=== PATIENT | female | born 1935 | race African-American/Black ===

== ENCOUNTER 2017-04-26 19:11 | Inpatient (IN) | payer MEDICARE, MEDICAID ==
[~2017-04-26] VITALS: Ht 165.1 cm; Wt 98.4 kg
[~2017-04-26 19:11] MED LIST: ACET500T97 PO; ALBU05 IH; ALBU18HF2 IH; ALLO100T PO; AMLO10TA4 PO; ASPI-1158 PO; ATOR80TA PO; AZEL137S7 NS; CHOL40002 PO; CLOT15CR4 TP; DABI150C PO; DIGO125T82 PO; ETOMIDATE 2MG/ML 10ML VIAL IV ONE; FLUT1DIS5 IH; HYDR-3511 PO; LISI-604 PO; METO50TA5 PO; MONT10TA24 PO; NEBI5TAB3 PO; P20 PO; POTA99TA18 PO; PRED10TA PO; PRED10TA23 PO; REV20 GT; REV20 PO; SENN8.6C5 PO; SILD20TA PO; SUCCINYLCHOLINE CHLORIDE 200MG/10ML VIAL IV ONE; VALS320T2 PO; VIC PO
[2017-04-26] MEDS ORDERED: SODIUM CHLORIDE 0.9% 1000ML BAG (SEPSIS BOLUS) IV ONE (19:30)
[2017-04-26] MEDS ORDERED: MIDAZOLAM HCL 2 MG/2 ML VIAL IV ONE (19:45)
[2017-04-26] MEDS ORDERED: MIDAZOLAM HCL 50 MG in DEXTROSE 5% WATER 40 ML IV ONE ×2 (19:45→22:00)
[2017-04-26] MEDS ORDERED: MIDAZOLAM HCL 50 MG in DEXTROSE 5% WATER 40 ML IV NR (20:00)
[2017-04-26 20:49] LABS: BG BASE EXCESS 6.6 mmol/L (-2.0-2.0); BG CARBOXYHEMOGLOBIN 0.5 % (0.5-1.5); BG DEOXYHEMOGLOBIN 0.6 % (0.0-5.0); BG FRACTION INSPIRED OXYGEN 100; BG HCO3 ACT 32.4 mmol/L (22.0-26.0); BG METHEMOGLOBIN 0.3 % (0.0-1.5); BG OXYGEN SATURATION 99.4 % (92.0-98.5); BG OXYHEMOGLOBIN 98.6 % (94.0-97.0); BG PCO2 54.3 mmHg (35.0-45.0); BG PH 7.394 (7.350-7.450); BG PO2 209.5 mmHg (75.0-100.0); BG SAMPLE SITE LEFT RADIAL; BG TIDAL VOLUME(mL) 550 mL; BG TOTAL HEMOGLOBIN 8.9 g/dL (12.0-18.0); BG VENT MODE VENT - A/C; BG VENT RATE 12 set
[2017-04-26 20:50] LABS: BASOPHILS % 0.3 % (0.0-2.0); HEMATOCRIT. 27.5 % (36.0-48.0); HEMOGLOBIN. 8.3 g/dL (12.0-16.0); LYMPHOCYTES % 18.1 % (20.0-50.0); MEAN CORPUSCULAR HEMOGLOBIN 28.9 pg (28.0-32.0); MEAN CORPUSCULAR VOLUME 96.2 fL (81.0-99.0); MEAN PLATELET VOLUME 8.3 fl (7.4-10.4); MONOCYTES % 5.7 % (2.0-8.0); NEUTROPHILS % 75.9 % (40.0-76.0); PLATELET 184 x1000/uL (130-400); RED BLOOD CELL COUNT 2.86 mill/uL (4.2-5.4); RED CELL DISTRIBUTION WIDTH 16.3 % (11.6-14.6)
[2017-04-26 20:54] LABS: INR 1.4
[2017-04-26 21:02] LABS: CARBON DIOXIDE 36 mEq/L (21-32); CHLORIDE 101 mEq/L (98-107)
[2017-04-26 21:05] LABS: TROPONIN I < 0.02 ng/mL (0.00-0.04)
[2017-04-26] MEDS ORDERED: LEVOFLOXACIN 750MG PREMIX 150 ML IV ONE (22:15)
[2017-04-26 23:11] LABS: CLARITY URINE CLOUDY (CLEAR); COLOR URINE YELLOW (YELLOW); GLUCOSE URINE NEGATIVE (NEGATIVE); KETONES URINE NEGATIVE (NEGATIVE); LEUKOCYTE ESTERASE URINE TRACE (NEGATIVE); NITRITE URINE NEGATIVE (NEGATIVE); OCCULT BLOOD URINE NEGATIVE (NEGATIVE); PROTEIN URINE 2+ (NEGATIVE); SPECIFIC GRAVITY URINE 1.017 (1.005-1.030)
[2017-04-27] VITALS (88 sets, daily range): BP systolic 107–172; BP diastolic 20–104
[2017-04-27] MEDS ORDERED: ACETAMINOPHEN 650MG/20.3ML UDC GT PRN
[2017-04-27] MEDS ORDERED: IPRATROPIUM/ALBUTEROL 0.5-3(2.5)MG/3ML NEB INH PRN
[2017-04-27] MEDS ORDERED: HYDROCODONE/ACETAMINOPHEN 5/325MG TABLET PO PRN
[2017-04-27] MEDS ORDERED: NA PHOS,M-B/NA PHOS,DI-BA ENEMA 118ML PR PRN
[2017-04-27] MEDS ORDERED: ONDANSETRON HCL 4MG/2ML VIAL IV PRN
[2017-04-27] MEDS ORDERED: GUAIFENESIN 200MG/10ML SUGAR FREE UDC PO PRN
[2017-04-27] MEDS ORDERED: ACETAMINOPHEN 325MG TABLET PO PRN
[2017-04-27] MEDS ORDERED: MORPHINE SULFATE 2 MG/ML CPJ (NOT FOR IM USE) IV PRN
[2017-04-27] MEDS ORDERED: DIPHENHYDRAMINE 50MG/ML VIAL IV PRN
[2017-04-27] MEDS ORDERED: LORAZEPAM 2MG/ML CPJ IV PRN
[2017-04-27] MEDS ORDERED: ACETAMINOPHEN 650MG SUPP PR PRN
[2017-04-27] MEDS ORDERED: MAGNESIUM/ALUMINUM HYDROXIDE/SIMETHICONE 30ML UDC PO PRN
[2017-04-27] MEDS ORDERED: MIRT-91 PO (01:22)
[2017-04-27] MEDS ORDERED: LETAIRIS (02:16)
[2017-04-27] MEDS ORDERED: FURO-152 PO (02:16)
[2017-04-27] MEDS ORDERED: NEBI10TA2 PO (02:16)
[2017-04-27] MEDS ORDERED: MEMA1CAP MT (02:16)
[2017-04-27] MEDS: IPRATROPIUM/ALBUTEROL 0.5-3(2.5)MG/3ML NEB INH SCH ×2 (02:18→09:02)
[2017-04-27] MEDS ORDERED: NOREPINEPHRINE 4 MG in DEXT 5% WATER 246 ML IV PRN (03:00)
[2017-04-27] MEDS: METHYLPREDNISOLONE SOD SUCC 125 MG/2 ML VIAL IV SCH ×3 (05:35→21:00)
[2017-04-27] MEDS: SODIUM CHLORIDE 0.9% INJ 3ML FLUSH IVF SCH ×3 (05:35→21:03)
[2017-04-27 05:54] LABS: BASOPHILS % 0.2 % (0.0-2.0); HEMATOCRIT. 26.8 % (36.0-48.0); HEMOGLOBIN. 8.3 g/dL (12.0-16.0); LYMPHOCYTES % 21.9 % (20.0-50.0); MEAN CORPUSCULAR VOLUME 93.7 fL (81.0-99.0); MEAN PLATELET VOLUME 8.2 fl (7.4-10.4); MONOCYTES % 13.3 % (2.0-8.0); NEUTROPHILS % 64.6 % (40.0-76.0); PLATELET 159 x1000/uL (130-400); RED BLOOD CELL COUNT 2.86 mill/uL (4.2-5.4); RED CELL DISTRIBUTION WIDTH 16.2 % (11.6-14.6)
[2017-04-27] MEDS: PROPOFOL 10MG/ML 100ML 100 ML IV PRN ×2 (05:54→14:51)
[2017-04-27] MEDS ORDERED: METHYLPREDNISOLONE SOD SUCC 125 MG/2 ML VIAL IV SCH (06:00)
[2017-04-27 07:00] LABS: CARBON DIOXIDE 36 mEq/L (21-32); CHLORIDE 103 mEq/L (98-107)
[2017-04-27 07:10] LABS: CREATINE KINASE 69 IU/L (26-192); HDL CHOLESTEROL 38 mg/dL (40-59); LDL CHOLESTEROL 52 mg/dL (5-100); TROPONIN I 0.03 ng/mL (0.00-0.04)
[2017-04-27] MEDS ORDERED: ENOXAPARIN 40MG/0.4ML SYR SUBCUT SCH (09:00)
[2017-04-27] MEDS: DEXT 5%/0.45% NACL 1000ML 1,000 ML IV SCH ×2 (09:10→21:02)
[2017-04-27 09:24] LABS: BG BASE EXCESS 8.8 mmol/L (-2.0-2.0); BG CARBOXYHEMOGLOBIN 0.2 % (0.5-1.5); BG DEOXYHEMOGLOBIN 1.8 % (0.0-5.0); BG FRACTION INSPIRED OXYGEN 60; BG HCO3 ACT 33.8 mmol/L (22.0-26.0); BG OXYGEN SATURATION 98.2 % (92.0-98.5); BG PCO2 49.3 mmHg (35.0-45.0); BG PH 7.454 (7.350-7.450); BG PO2 116.2 mmHg (75.0-100.0); BG SAMPLE SITE RIGHT RADIAL; BG TIDAL VOLUME(mL) 500 mL; BG VENT MODE VENT - A/C; BG VENT RATE 12 set
[2017-04-27] MEDS: PANTOPRAZOLE SODIUM 40 MG/VIAL IV SCH (11:29)
[2017-04-27 11:53] LABS: *AMPHETAMINES SCREEN URINE NEGATIVE (NEGATIVE); *BARBITURATES SCREEN URINE NEGATIVE (NEGATIVE); *BENZODIAZEPINES SCREEN URINE PRESUMTIVE POSITIVE (NEGATIVE); *COCAINE SCREEN URINE NEGATIVE (NEGATIVE); CANNABINOID URINE SCREEN NEGATIVE (NEGATIVE); METHADONE URINE SCREEN NEGATIVE (NEGATIVE); OPIATES URINE SCREEN NEGATIVE (NEGATIVE); PHENCYCLIDINE URINE SCREEN NEGATIVE (NEGATIVE)
[2017-04-27] MEDS: IPRATROPIUM/ALBUTEROL 0.5-3(2.5)MG/3ML NEB HHN SCH ×3 (12:27→20:07)
[2017-04-27] MEDS: BUDESONIDE 0.5MG/2ML NEB HHN SCH (12:27)
[2017-04-27 14:28] LABS: TROPONIN I 0.02 ng/mL (0.00-0.04)
[2017-04-27] MEDS ORDERED: METRONIDAZOLE 500 MG PREMIX 100 ML IV SCH (21:15)
[2017-04-28] VITALS (45 sets, daily range): BP systolic 114–146; BP diastolic 60–87
[2017-04-28] MEDS: PROPOFOL 10MG/ML 100ML 100 ML IV PRN (00:33)
[2017-04-28] MEDS: CEFEPIME 2,000 MG in DEXT 5% WATER 100 ML IV SCH ×3 (00:38→22:01)
[2017-04-28] MEDS: LEVOFLOXACIN 750MG PREMIX 150 ML IV SCH ×2 (00:39→22:06)
[2017-04-28] MEDS: BUDESONIDE 0.5MG/2ML NEB HHN SCH ×3 (01:30→19:54)
[2017-04-28] MEDS: IPRATROPIUM/ALBUTEROL 0.5-3(2.5)MG/3ML NEB HHN SCH ×6 (01:30→19:54)
[2017-04-28] MEDS: SODIUM CHLORIDE 0.9% INJ 3ML FLUSH IVF SCH ×3 (05:42→22:01)
[2017-04-28] MEDS: METHYLPREDNISOLONE SOD SUCC 125 MG/2 ML VIAL IV SCH (05:42)
[2017-04-28 07:21] LABS: BG BASE EXCESS 9.9 mmol/L (-2.0-2.0); BG CARBOXYHEMOGLOBIN 0.2 % (0.5-1.5); BG HCO3 ACT 34.5 mmol/L (22.0-26.0); BG METHEMOGLOBIN 0.2 % (0.0-1.5); BG OXYHEMOGLOBIN 94.6 % (94.0-97.0); BG PH 7.475 (7.350-7.450); BG PO2 79.2 mmHg (75.0-100.0); BG SAMPLE SITE RIGHT RADIAL; BG TIDAL VOLUME(mL) 500 mL; BG TOTAL HEMOGLOBIN 8.4 g/dL (12.0-18.0); BG VENT MODE VENT - A/C; BG VENT RATE 12 set
[2017-04-28] MEDS ORDERED: PROPOFOL 10MG/ML 100ML 100 ML IV PRN (07:45)
[2017-04-28] MEDS: PANTOPRAZOLE SODIUM 40 MG/VIAL IV SCH (08:42)
[2017-04-28] MEDS ORDERED: ENOXAPARIN 40MG/0.4ML SYR SUBCUT SCH (11:00)
[2017-04-28] MEDS: ENOXAPARIN 40MG/0.4ML SYR SUBCUT SCH (11:03)
[2017-04-28] MEDS ORDERED: SODIUM CHLORIDE 10% FOR INH 15ML VIAL NEB INH SCH (11:30)
[2017-04-28] MEDS: DEXT 5%/0.45% NACL 1000ML 1,000 ML IV SCH (17:21)
[2017-04-28] MEDS: AMLODIPINE 5MG TABLET PO SCH (20:56)
[2017-04-29] VITALS (38 sets, daily range): BP systolic 97–148; BP diastolic 38–82
[2017-04-29] MEDS: IPRATROPIUM/ALBUTEROL 0.5-3(2.5)MG/3ML NEB HHN SCH ×6 (00:02→20:42)
[2017-04-29] MEDS: SODIUM CHLORIDE 0.9% INJ 3ML FLUSH IVF SCH ×3 (05:24→21:06)
[2017-04-29 07:35] LABS: BG BASE EXCESS 10.6 mmol/L (-2.0-2.0); BG CARBOXYHEMOGLOBIN 0.4 % (0.5-1.5); BG DEOXYHEMOGLOBIN 3.7 % (0.0-5.0); BG FRACTION INSPIRED OXYGEN 60; BG HCO3 ACT 35.1 mmol/L (22.0-26.0); BG METHEMOGLOBIN 0.1 % (0.0-1.5); BG OXYGEN SATURATION 96.3 % (92.0-98.5); BG OXYHEMOGLOBIN 95.8 % (94.0-97.0); BG PCO2 47.1 mmHg (35.0-45.0); BG PRESSURE SUPPORT 10; BG SAMPLE SITE RIGHT BRACHIAL; BG TIDAL VOLUME(mL) 500 mL; BG TOTAL HEMOGLOBIN 8.7 g/dL (12.0-18.0); BG VENT MODE VENT - SIMV; BG VENT RATE 14 set
[2017-04-29] MEDS: BUDESONIDE 0.5MG/2ML NEB HHN SCH ×2 (09:17→20:42)
[2017-04-29] MEDS: PANTOPRAZOLE SODIUM 40 MG/VIAL IV SCH (09:29)
[2017-04-29] MEDS: AMLODIPINE 5MG TABLET PO SCH ×2 (09:30→21:03)
[2017-04-29] MEDS: CEFEPIME 2,000 MG in DEXT 5% WATER 100 ML IV SCH (11:38)
[2017-04-29] MEDS: ENOXAPARIN 40MG/0.4ML SYR SUBCUT SCH (11:39)
[2017-04-29] MEDS ORDERED: FUROSEMIDE 40MG/4ML VIAL IVP NR (11:45)
[2017-04-29] MEDS ORDERED: PNEUMOCOCCAL 23-VAL P-SAC VAC 0.5 ML IM ONE (13:30)
[2017-04-29] MEDS ORDERED: VANCOMYCIN 2,000 MG in DEXT 5% WATER 500 ML IV SCH (14:00)
[2017-04-29] MEDS: SILDENAFIL CITRATE 20MG TABLET PO SCH ×2 (14:54→21:02)
[2017-04-29] MEDS: LACTULOSE 20G/30ML UDC PO PRN (16:52)
[2017-04-29 17:51] LABS: BASOPHILS % 0.3 % (0.0-2.0); EOSINOPHILS % 0.5 % (0.0-5.0); HEMATOCRIT. 27.7 % (36.0-48.0); HEMOGLOBIN. 8.6 g/dL (12.0-16.0); LYMPHOCYTES % 33.4 % (20.0-50.0); MEAN CORPUSCULAR HEMOGLOBIN 28.4 pg (28.0-32.0); MEAN CORPUSCULAR VOLUME 90.9 fL (81.0-99.0); MEAN PLATELET VOLUME 7.6 fl (7.4-10.4); MONOCYTES % 7.5 % (2.0-8.0); NEUTROPHILS % 58.3 % (40.0-76.0); PLATELET 167 x1000/uL (130-400); RED BLOOD CELL COUNT 3.04 mill/uL (4.2-5.4); RED CELL DISTRIBUTION WIDTH 16.2 % (11.6-14.6)
[2017-04-29 18:10] LABS: CARBON DIOXIDE 35 mEq/L (21-32); CHLORIDE 105 mEq/L (98-107)
[2017-04-29] MEDS: LEVOFLOXACIN 750MG PREMIX 150 ML IV SCH (22:07)
[2017-04-30] VITALS (53 sets, daily range): BP systolic 90–125; BP diastolic 31–80
[2017-04-30] MEDS: IPRATROPIUM/ALBUTEROL 0.5-3(2.5)MG/3ML NEB HHN SCH ×7 (00:16→23:41)
[2017-04-30] MEDS: SILDENAFIL CITRATE 20MG TABLET PO SCH ×3 (05:42→21:48)
[2017-04-30] MEDS: SODIUM CHLORIDE 0.9% INJ 3ML FLUSH IVF SCH ×3 (05:42→21:38)
[2017-04-30] MEDS: BUDESONIDE 0.5MG/2ML NEB HHN SCH (08:19)
[2017-04-30] MEDS: PANTOPRAZOLE SODIUM 40 MG/VIAL IV SCH (08:24)
[2017-04-30] MEDS: AMLODIPINE 5MG TABLET PO SCH ×3 (08:25→21:47)
[2017-04-30] MEDS: FUROSEMIDE 40MG/4ML VIAL IVP SCH (08:25)
[2017-04-30] MEDS: ENOXAPARIN 40MG/0.4ML SYR SUBCUT SCH (10:37)
[2017-04-30 11:03] LABS: BASOPHILS % 0.4 % (0.0-2.0); EOSINOPHILS % 2.1 % (0.0-5.0); HEMATOCRIT. 26.3 % (36.0-48.0); HEMOGLOBIN. 8.2 g/dL (12.0-16.0); LYMPHOCYTES % 31.9 % (20.0-50.0); MEAN CORPUSCULAR HEMOGLOBIN 28.5 pg (28.0-32.0); MEAN CORPUSCULAR VOLUME 91.6 fL (81.0-99.0); MONOCYTES % 8.8 % (2.0-8.0); NEUTROPHILS % 56.8 % (40.0-76.0); PLATELET 158 x1000/uL (130-400); RED BLOOD CELL COUNT 2.87 mill/uL (4.2-5.4); RED CELL DISTRIBUTION WIDTH 16.1 % (11.6-14.6)
[2017-04-30 11:47] LABS: CARBON DIOXIDE 36 mEq/L (21-32); CHLORIDE 102 mEq/L (98-107)
[2017-04-30] MEDS: VANCOMYCIN 1250MG in DEXTROSE 5% WATER 250ML IV SCH (13:28)
[2017-04-30 13:56] LABS: BG BASE EXCESS 10.5 mmol/L (-2.0-2.0); BG CARBOXYHEMOGLOBIN 0.3 % (0.5-1.5); BG DEOXYHEMOGLOBIN 4.6 % (0.0-5.0); BG FRACTION INSPIRED OXYGEN 50; BG HCO3 ACT 35.5 mmol/L (22.0-26.0); BG METHEMOGLOBIN 0.2 % (0.0-1.5); BG OXYGEN SATURATION 95.4 % (92.0-98.5); BG OXYHEMOGLOBIN 94.9 % (94.0-97.0); BG PCO2 50.8 mmHg (35.0-45.0); BG PH 7.462 (7.350-7.450); BG PO2 81.6 mmHg (75.0-100.0); BG PRESSURE SUPPORT 10; BG SAMPLE SITE RIGHT BRACHIAL; BG TIDAL VOLUME(mL) 500 mL; BG VENT MODE VENT - SIMV; BG VENT RATE 14 set
[2017-04-30] MEDS: THEOPHYLLINE ANHYDROUS 80 MG/15 ML 120ML PEG SCH ×2 (17:52→21:48)
[2017-04-30] MEDS: LEVOFLOXACIN 750MG PREMIX 150 ML IV SCH (23:10)
[2017-05-01] VITALS (35 sets, daily range): BP systolic 97–132; BP diastolic 48–90
[2017-05-01] MEDS: IPRATROPIUM/ALBUTEROL 0.5-3(2.5)MG/3ML NEB HHN SCH ×6 (04:14→23:39)
[2017-05-01] MEDS: SODIUM CHLORIDE 0.9% INJ 3ML FLUSH IVF SCH ×3 (05:04→21:13)
[2017-05-01] MEDS: SILDENAFIL CITRATE 20MG TABLET PO SCH ×3 (06:00→22:36)
[2017-05-01] MEDS: THEOPHYLLINE ANHYDROUS 80 MG/15 ML 120ML PEG SCH ×3 (06:43→21:27)
[2017-05-01] MEDS: AMLODIPINE 5MG TABLET PO SCH ×2 (09:00→20:01)
[2017-05-01] MEDS: PANTOPRAZOLE SODIUM 40 MG/VIAL IV SCH (09:34)
[2017-05-01] MEDS: FUROSEMIDE 40MG/4ML VIAL IVP SCH (09:34)
[2017-05-01] MEDS: ENOXAPARIN 40MG/0.4ML SYR SUBCUT SCH (12:08)
[2017-05-01] MEDS: VANCOMYCIN 1250MG in DEXTROSE 5% WATER 250ML IV SCH (14:00)
[2017-05-01] MEDS: LEVOFLOXACIN 750MG PREMIX 150 ML IV SCH (23:32)
[2017-05-02] VITALS (49 sets, daily range): BP systolic 89–134; BP diastolic 19–98
[2017-05-02] MEDS: IPRATROPIUM/ALBUTEROL 0.5-3(2.5)MG/3ML NEB HHN SCH ×5 (04:27→20:36)
[2017-05-02] MEDS: SODIUM CHLORIDE 0.9% INJ 3ML FLUSH IVF SCH ×3 (05:43→21:24)
[2017-05-02] MEDS: THEOPHYLLINE ANHYDROUS 80 MG/15 ML 120ML PEG SCH ×3 (06:15→21:37)
[2017-05-02] MEDS: SILDENAFIL CITRATE 20MG TABLET PO SCH ×3 (06:15→21:24)
[2017-05-02 08:32] LABS: BG BASE EXCESS 10.2 mmol/L (-2.0-2.0); BG CARBOXYHEMOGLOBIN 0.4 % (0.5-1.5); BG DEOXYHEMOGLOBIN 5.6 % (0.0-5.0); BG FRACTION INSPIRED OXYGEN 40; BG HCO3 ACT 36.3 mmol/L (22.0-26.0); BG METHEMOGLOBIN 0.3 % (0.0-1.5); BG OXYGEN SATURATION 94.4 % (92.0-98.5); BG OXYHEMOGLOBIN 93.7 % (94.0-97.0); BG PCO2 57.6 mmHg (35.0-45.0); BG PH 7.417 (7.350-7.450); BG PO2 78.9 mmHg (75.0-100.0); BG PRESSURE SUPPORT 10; BG SAMPLE SITE RIGHT RADIAL; BG TIDAL VOLUME(mL) 500 mL; BG TOTAL HEMOGLOBIN 9.7 g/dL (12.0-18.0); BG VENT MODE VENT - SIMV; BG VENT RATE 8 set
[2017-05-02 08:40] LABS: BASOPHILS % 0.6 % (0.0-2.0); EOSINOPHILS % 4.1 % (0.0-5.0); HEMATOCRIT. 28.2 % (36.0-48.0); HEMOGLOBIN. 8.7 g/dL (12.0-16.0); LYMPHOCYTES % 28.3 % (20.0-50.0); MEAN CORPUSCULAR HEMOGLOBIN 28.1 pg (28.0-32.0); MEAN CORPUSCULAR VOLUME 91.4 fL (81.0-99.0); MEAN PLATELET VOLUME 8.1 fl (7.4-10.4); MONOCYTES % 8.2 % (2.0-8.0); NEUTROPHILS % 58.8 % (40.0-76.0); PLATELET 163 x1000/uL (130-400); RED BLOOD CELL COUNT 3.09 mill/uL (4.2-5.4); RED CELL DISTRIBUTION WIDTH 15.9 % (11.6-14.6)
[2017-05-02 08:48] LABS: CHLORIDE 104 mEq/L (98-107)
[2017-05-02] MEDS: ENOXAPARIN 30MG/0.3ML SYR SUBCUT SCH ×2 (08:54→21:23)
[2017-05-02] MEDS: AMLODIPINE 5MG TABLET PO SCH ×2 (08:54→21:00)
[2017-05-02] MEDS: FUROSEMIDE 40MG/4ML VIAL IVP SCH (08:54)
[2017-05-02] MEDS: PANTOPRAZOLE SODIUM 40 MG/VIAL IV SCH (08:54)
[2017-05-02] MEDS: DOCUSATE SODIUM 100MG CAPSULE PO PRN ×2 (08:54→21:23)
[2017-05-02 09:23] LABS: CARBON DIOXIDE 42 mEq/L (21-32)
[2017-05-02 10:04] LABS: BG BASE EXCESS 13.5 mmol/L (-2.0-2.0); BG CARBOXYHEMOGLOBIN 0.2 % (0.5-1.5); BG DEOXYHEMOGLOBIN 4.8 % (0.0-5.0); BG FRACTION INSPIRED OXYGEN 40; BG HCO3 ACT 39.7 mmol/L (22.0-26.0); BG METHEMOGLOBIN 0.2 % (0.0-1.5); BG OXYGEN SATURATION 95.2 % (92.0-98.5); BG OXYHEMOGLOBIN 94.8 % (94.0-97.0); BG PCO2 61.1 mmHg (35.0-45.0); BG PH 7.431 (7.350-7.450); BG PO2 81.3 mmHg (75.0-100.0); BG PRESSURE SUPPORT 8; BG SAMPLE SITE RIGHT RADIAL; BG TOTAL HEMOGLOBIN 9.8 g/dL (12.0-18.0); BG VENT MODE VENT - CPAP
[2017-05-02] MEDS: VANCOMYCIN 1250MG in DEXTROSE 5% WATER 250ML IV SCH (14:46)
[2017-05-02] MEDS: LEVOFLOXACIN 750MG PREMIX 150 ML IV SCH (23:01)
[2017-05-03] VITALS (50 sets, daily range): BP systolic 79–125; BP diastolic 37–75
[2017-05-03] MEDS: IPRATROPIUM/ALBUTEROL 0.5-3(2.5)MG/3ML NEB HHN SCH ×6 (00:24→19:51)
[2017-05-03] MEDS: THEOPHYLLINE ANHYDROUS 80 MG/15 ML 120ML PEG SCH ×3 (05:48→20:46)
[2017-05-03] MEDS: SODIUM CHLORIDE 0.9% INJ 3ML FLUSH IVF SCH ×3 (05:48→20:46)
[2017-05-03] MEDS: SILDENAFIL CITRATE 20MG TABLET PO SCH (05:48)
[2017-05-03 07:38] LABS: BG BASE EXCESS 14.5 mmol/L (-2.0-2.0); BG BILEVEL POS AIRWAY PRESSURE 15/5; BG CARBOXYHEMOGLOBIN 0.4 % (0.5-1.5); BG DEOXYHEMOGLOBIN 7.1 % (0.0-5.0); BG HCO3 ACT 42.8 mmol/L (22.0-26.0); BG METHEMOGLOBIN 0.3 % (0.0-1.5); BG OXYGEN SATURATION 92.8 % (92.0-98.5); BG OXYHEMOGLOBIN 92.2 % (94.0-97.0); BG PCO2 81.6 mmHg (35.0-45.0); BG PH 7.338 (7.350-7.450); BG SAMPLE SITE RIGHT BRACHIAL; BG TOTAL HEMOGLOBIN 9.6 g/dL (12.0-18.0); BG VENT MODE MASK - BIPAP; BG VENT RATE 14 set
[2017-05-03] MEDS: FUROSEMIDE 40MG/4ML VIAL IVP SCH (08:59)
[2017-05-03] MEDS: PANTOPRAZOLE SODIUM 40 MG/VIAL IV SCH (08:59)
[2017-05-03] MEDS: VANCOMYCIN 1250MG in DEXTROSE 5% WATER 250ML IV SCH (08:59)
[2017-05-03] MEDS: ENOXAPARIN 30MG/0.3ML SYR SUBCUT SCH ×2 (09:00→20:45)
[2017-05-03] MEDS: AMLODIPINE 5MG TABLET PO SCH ×2 (09:01→20:50)
[2017-05-03] MEDS: LETAIRIS PO SCH (15:03)
[2017-05-03] MEDS: DOCUSATE SODIUM 100MG CAPSULE PO PRN (20:45)
[2017-05-03] MEDS: LEVOFLOXACIN 750MG PREMIX 150 ML IV SCH (22:13)
[2017-05-04] VITALS (30 sets, daily range): BP systolic 84–117; BP diastolic 24–71
[2017-05-04] MEDS: IPRATROPIUM/ALBUTEROL 0.5-3(2.5)MG/3ML NEB HHN SCH ×6 (00:04→20:34)
[2017-05-04] MEDS: VANCOMYCIN 1250MG in DEXTROSE 5% WATER 250ML IV SCH ×2 (01:35→20:20)
[2017-05-04] MEDS: THEOPHYLLINE ANHYDROUS 80 MG/15 ML 120ML PEG SCH ×3 (06:20→21:35)
[2017-05-04] MEDS: SODIUM CHLORIDE 0.9% INJ 3ML FLUSH IVF SCH ×3 (06:20→20:32)
[2017-05-04] MEDS: PANTOPRAZOLE SODIUM 40 MG/VIAL IV SCH (08:29)
[2017-05-04] MEDS: FUROSEMIDE 40MG/4ML VIAL IVP SCH (08:29)
[2017-05-04] MEDS: AMLODIPINE 5MG TABLET PO SCH (08:29)
[2017-05-04] MEDS: ENOXAPARIN 30MG/0.3ML SYR SUBCUT SCH ×2 (08:29→20:28)
[2017-05-04] MEDS: LETAIRIS PO SCH (08:29)
[2017-05-04 15:46] LABS: BG BASE EXCESS 15.2 mmol/L (-2.0-2.0); BG CARBOXYHEMOGLOBIN 0.2 % (0.5-1.5); BG DEOXYHEMOGLOBIN 7.1 % (0.0-5.0); BG FRACTION INSPIRED OXYGEN 28; BG HCO3 ACT 42.7 mmol/L (22.0-26.0); BG METHEMOGLOBIN 0.3 % (0.0-1.5); BG OXYGEN SATURATION 92.9 % (92.0-98.5); BG OXYHEMOGLOBIN 92.4 % (94.0-97.0); BG PCO2 74.2 mmHg (35.0-45.0); BG PH 7.378 (7.350-7.450); BG PO2 69.3 mmHg (75.0-100.0); BG SAMPLE SITE RIGHT RADIAL; BG TOTAL HEMOGLOBIN 9.3 g/dL (12.0-18.0); BG VENT MODE NASAL CANNULA
[2017-05-04 18:10] LABS: HEMATOCRIT 26.4 % (36.0-48.0); HEMOGLOBIN 8.1 g/dL (12.0-16.0); MEAN CORPUSCULAR HEMOGLOBIN 28.2 pg (28.0-32.0); MEAN CORPUSCULAR VOLUME 91.7 fL (81.0-99.0); PLATELET 183 x1000/uL (130-400); RED BLOOD CELL COUNT 2.88 mill/uL (4.2-5.4); RED CELL DISTRIBUTION WIDTH 15.3 % (11.6-14.6)
[2017-05-04 18:15] LABS: CARBON DIOXIDE 38 mEq/L (21-32); CHLORIDE 96 mEq/L (98-107)
[2017-05-04] MEDS: LEVOFLOXACIN 750MG PREMIX 150 ML IV SCH (23:03)
[2017-05-05] VITALS: BP 107/62
[2017-05-05] MEDS: IPRATROPIUM/ALBUTEROL 0.5-3(2.5)MG/3ML NEB HHN SCH ×4 (00:38→12:19)
[2017-05-05 04:00] VITALS: BP 99/59
[2017-05-05] MEDS: THEOPHYLLINE ANHYDROUS 80 MG/15 ML 120ML PEG SCH ×2 (05:21→13:17)
[2017-05-05] MEDS: SODIUM CHLORIDE 0.9% INJ 3ML FLUSH IVF SCH ×2 (05:22→13:55)
[2017-05-05 08:00] VITALS: BP 124/68
[2017-05-05] MEDS ORDERED: THEOL PEG (08:32)
[2017-05-05] MEDS: PANTOPRAZOLE SODIUM 40 MG/VIAL IV SCH (09:21)
[2017-05-05] MEDS: FUROSEMIDE 40MG/4ML VIAL IVP SCH (09:21)
[2017-05-05] MEDS: LETAIRIS PO SCH (09:22)
[2017-05-05] MEDS: ENOXAPARIN 30MG/0.3ML SYR SUBCUT SCH (09:22)
[2017-05-05 11:05] LABS: T4 FREE 1.38 ng/dL (0.76-1.46)
[2017-05-05] MEDS: VANCOMYCIN 1250MG in DEXTROSE 5% WATER 250ML IV SCH (13:17)
[2017-05-05 13:22] VITALS: BP 98/54
[2017-05-05 13:29] VITALS: BP 98/54
[2017-05-05] MEDS ORDERED: METOPROLOL TARTRATE 25MG TABLET PO SCH (13:30)
[2017-05-05] MEDS: LACTULOSE 20G/30ML UDC PO PRN (13:41)
[2017-05-05] MEDS ORDERED: SILDENAFIL CITRATE 20MG TABLET PO SCH (14:00)
[2017-05-05] MEDS ORDERED: DABIGATRAN ETEXILATE MESYLATE 150 MG PO SCH (17:00)
[2017-05-05 20:49] LABS: CREATINE KINASE 37 IU/L (26-192); CREATINE KINASE MB FRACTION 0.6 ng/mL (0.5-3.6); TROPONIN I < 0.02 ng/mL (0.00-0.04)
== END 2017-05-05 15:42 | DRG 870 ==
LOC: ER 19:11 → MICUNO 22:44 → ENRESERV 23:06 → 5EST 05-04 14:54
PROVIDERS: ADMIT Family Medicine; ATTEND Family Medicine
PROC: 5A1955Z Respiratory Ventilation, Greater than 96 Consecutive Hours (ICD-10-PCS; principal; 2017-04-26)
PROC: 0BH17EZ Insertion of Endotracheal Airway into Trachea, Via Natural or Artificial Opening (ICD-10-PCS; 2017-04-26)
DX: A41.9 Sepsis, unspecified organism (principal); J69.0 Pneumonitis due to inhalation of food and vomit; J96.21 Acute and chronic respiratory failure with hypoxia; G93.41 Metabolic encephalopathy; I50.33 Acute on chronic diastolic (congestive) heart failure; G93.1 Anoxic brain damage, not elsewhere classified; D68.59 Other primary thrombophilia; I27.2 Other secondary pulmonary hypertension; J44.1 Chronic obstructive pulmonary disease with (acute) exacerbation; N39.0 Urinary tract infection, site not specified; I11.0 Hypertensive heart disease with heart failure; D64.9 Anemia, unspecified; E78.5 Hyperlipidemia, unspecified; I48.91 Unspecified atrial fibrillation; Z99.81 Dependence on supplemental oxygen; Z88.0 Allergy status to penicillin
CPT/HCPCS: 31500; 36415; 36600; 51702; 70450; 71010; 80048; 80053; 80061; 80202; 80305; 81001; 82375; 82550; 82553; 82805; 83036; 83605; 83880; 84439; 84443; 84478; 84484; 85025; 85027; 85379; 85610; 87040; 87070; 87086; 92610; 93005; 93306; 93970; 94002; 94003; 94640; 94660; 96374; 97110; 97116; 97163; 97166; 97530; 99291; A6261; C9113; J0330; J0692; J1650; J1940; J1956; J2250; J2704; J2930; J3370; J3490; J7030; J7040; J7050; J7060; J7131; J7620; J7626; A4315

== ENCOUNTER 2017-05-05 15:48 | Inpatient (IN) | payer MEDICARE, MEDICAID ==
[~2017-05-05] VITALS: Ht 165.1 cm; Wt 98.4 kg
[~2017-05-05 15:48] MED LIST changes: -ETOMIDATE 2MG/ML 10ML VIAL IV ONE; +FURO-152 PO; +LETAIRIS; +MEMA1CAP MT; +MIRT-91 PO; +NEBI10TA2 PO; -SUCCINYLCHOLINE CHLORIDE 200MG/10ML VIAL IV ONE; +THEOL PEG
[2017-05-05 17:00] VITALS: BP 103/54
[2017-05-05] MEDS ORDERED: GUAIFENESIN 200MG/10ML SUGAR FREE UDC PO PRN (18:15)
[2017-05-05] MEDS ORDERED: DIPHENHYDRAMINE 25MG CAPSULE PO PRN (18:15)
[2017-05-05] MEDS ORDERED: MAGNESIUM/ALUMINUM HYDROXIDE/SIMETHICONE 30ML UDC PO PRN (18:15)
[2017-05-05] MEDS ORDERED: ACETAMINOPHEN 650MG SUPP PR PRN (18:15)
[2017-05-05] MEDS ORDERED: NA PHOS,M-B/NA PHOS,DI-BA ENEMA 118ML PR PRN (18:15)
[2017-05-05] MEDS ORDERED: LACTULOSE 20G/30ML UDC PO PRN (18:15)
[2017-05-05] MEDS ORDERED: DOCUSATE SODIUM 100MG CAPSULE PO PRN (18:15)
[2017-05-05] MEDS ORDERED: IPRATROPIUM/ALBUTEROL 0.5-3(2.5)MG/3ML NEB HHN PRN (18:15)
[2017-05-05] MEDS ORDERED: ONDANSETRON HCL 4MG TABLET PO PRN (18:15)
[2017-05-05] MEDS ORDERED: ACETAMINOPHEN 650MG/20.3ML UDC PO PRN (18:15)
[2017-05-05 20:00] VITALS: BP 120/67
[2017-05-05] MEDS: METOPROLOL TARTRATE 25MG TABLET PO SCH (21:37)
[2017-05-05] MEDS: SODIUM CHLORIDE 0.9% INJ 3ML FLUSH IVF SCH (21:37)
[2017-05-05] MEDS: SILDENAFIL CITRATE 20MG TABLET PO SCH (22:00)
[2017-05-05] MEDS: IPRATROPIUM/ALBUTEROL 0.5-3(2.5)MG/3ML NEB HHN SCH (22:15)
[2017-05-05] MEDS: THEOPHYLLINE ANHYDROUS 80 MG/15 ML 120ML PO SCH (22:39)
[2017-05-06] MEDS: IPRATROPIUM/ALBUTEROL 0.5-3(2.5)MG/3ML NEB HHN SCH ×6 (01:54→21:20)
[2017-05-06] MEDS: SODIUM CHLORIDE 0.9% INJ 3ML FLUSH IVF SCH ×3 (05:49→21:11)
[2017-05-06] MEDS ORDERED: VANCOMYCIN 1,250 MG in DEXT 5% WATER 250 ML IV SCH (06:00)
[2017-05-06] MEDS: SILDENAFIL CITRATE 20MG TABLET PO SCH ×3 (06:00→22:00)
[2017-05-06] MEDS: THEOPHYLLINE ANHYDROUS 80 MG/15 ML 120ML PO SCH ×3 (06:35→21:11)
[2017-05-06] MEDS: PANTOPRAZOLE 40MG DR TABLET PO SCH (06:36)
[2017-05-06 07:16] LABS: BASOPHILS % 0.8 % (0.0-2.0); EOSINOPHILS % 4.6 % (0.0-5.0); HEMATOCRIT. 26.4 % (36.0-48.0); HEMOGLOBIN. 8.3 g/dL (12.0-16.0); LYMPHOCYTES % 43.3 % (20.0-50.0); MEAN CORPUSCULAR HEMOGLOBIN 28.4 pg (28.0-32.0); MEAN CORPUSCULAR VOLUME 90.5 fL (81.0-99.0); MEAN PLATELET VOLUME 8.2 fl (7.4-10.4); MONOCYTES % 11.8 % (2.0-8.0); NEUTROPHILS % 39.5 % (40.0-76.0); PLATELET 178 x1000/uL (130-400); RED BLOOD CELL COUNT 2.92 mill/uL (4.2-5.4); RED CELL DISTRIBUTION WIDTH 15.2 % (11.6-14.6)
[2017-05-06 07:30] LABS: CHLORIDE 97 mEq/L (98-107); CREATINE KINASE 34 IU/L (26-192); TROPONIN I < 0.02 ng/mL (0.00-0.04)
[2017-05-06 08:00] VITALS: BP 100/54
[2017-05-06 08:38] LABS: CARBON DIOXIDE 40 mEq/L (21-32)
[2017-05-06] MEDS: METOPROLOL TARTRATE 25MG TABLET PO SCH ×2 (09:00→21:00)
[2017-05-06] MEDS: LETAIRIS PO SCH (09:24)
[2017-05-06] MEDS: DOCUSATE SODIUM 100MG CAPSULE PO SCH ×2 (09:24→17:19)
[2017-05-06] MEDS: FUROSEMIDE 40MG TABLET PO SCH (09:25)
[2017-05-06] MEDS: LEVOFLOXACIN 250MG TABLET PO SCH (11:58)
[2017-05-06] MEDS: DABIGATRAN 150 MG XX SCH (17:57)
[2017-05-06 20:00] VITALS: BP 98/46
[2017-05-07] MEDS: IPRATROPIUM/ALBUTEROL 0.5-3(2.5)MG/3ML NEB HHN SCH ×6 (01:39→21:10)
[2017-05-07] MEDS: PANTOPRAZOLE 40MG DR TABLET PO SCH (06:13)
[2017-05-07] MEDS: THEOPHYLLINE ANHYDROUS 80 MG/15 ML 120ML PO SCH ×3 (06:13→20:59)
[2017-05-07] MEDS: SODIUM CHLORIDE 0.9% INJ 3ML FLUSH IVF SCH ×3 (06:13→21:01)
[2017-05-07] MEDS: SILDENAFIL CITRATE 20MG TABLET PO SCH ×3 (06:16→20:54)
[2017-05-07 08:00] VITALS: BP 117/47
[2017-05-07] MEDS: DOCUSATE SODIUM 100MG CAPSULE PO SCH ×2 (09:45→17:45)
[2017-05-07] MEDS: FUROSEMIDE 40MG TABLET PO SCH (09:45)
[2017-05-07] MEDS: DABIGATRAN 150 MG XX SCH ×2 (09:46→17:45)
[2017-05-07] MEDS: METOPROLOL TARTRATE 25MG TABLET PO SCH ×2 (09:46→20:54)
[2017-05-07] MEDS: LETAIRIS PO SCH (09:46)
[2017-05-07] MEDS: LEVOFLOXACIN 250MG TABLET PO SCH (11:00)
[2017-05-07] MEDS ORDERED: LEVOFLOXACIN 250MG TABLET PO SCH (12:30)
[2017-05-07 20:00] VITALS: BP 121/59
[2017-05-08] MEDS: IPRATROPIUM/ALBUTEROL 0.5-3(2.5)MG/3ML NEB HHN SCH ×6 (02:00→23:40)
[2017-05-08] MEDS: PANTOPRAZOLE 40MG DR TABLET PO SCH (06:33)
[2017-05-08] MEDS: SILDENAFIL CITRATE 20MG TABLET PO SCH ×3 (06:33→20:40)
[2017-05-08] MEDS: THEOPHYLLINE ANHYDROUS 80 MG/15 ML 120ML PO SCH ×3 (06:33→20:34)
[2017-05-08] MEDS: SODIUM CHLORIDE 0.9% INJ 3ML FLUSH IVF SCH ×3 (06:39→20:40)
[2017-05-08 08:00] VITALS: BP 101/51
[2017-05-08] MEDS: METOPROLOL TARTRATE 25MG TABLET PO SCH ×2 (08:28→20:39)
[2017-05-08] MEDS: DOCUSATE SODIUM 100MG CAPSULE PO SCH ×2 (08:28→17:23)
[2017-05-08] MEDS: FUROSEMIDE 40MG TABLET PO SCH (08:28)
[2017-05-08] MEDS: LETAIRIS PO SCH (08:29)
[2017-05-08] MEDS: DABIGATRAN 150 MG XX SCH ×2 (08:30→17:23)
[2017-05-08 20:00] VITALS: BP 92/52
[2017-05-08] MEDS: CLOTRIMAZOLE 1% CREAM 30GM TOP SCH (20:34)
[2017-05-09] VITALS: BP 100/64
[2017-05-09] MEDS: IPRATROPIUM/ALBUTEROL 0.5-3(2.5)MG/3ML NEB HHN SCH ×5 (04:13→21:29)
[2017-05-09] MEDS: SILDENAFIL CITRATE 20MG TABLET PO SCH ×2 (06:00→21:17)
[2017-05-09] MEDS: THEOPHYLLINE ANHYDROUS 80 MG/15 ML 120ML PO SCH (06:08)
[2017-05-09] MEDS: PANTOPRAZOLE 40MG DR TABLET PO SCH (06:09)
[2017-05-09] MEDS: SODIUM CHLORIDE 0.9% INJ 3ML FLUSH IVF SCH ×3 (06:14→21:16)
[2017-05-09 08:00] VITALS: BP 100/58
[2017-05-09] MEDS: DOCUSATE SODIUM 100MG CAPSULE PO SCH ×2 (08:13→18:01)
[2017-05-09] MEDS: FUROSEMIDE 40MG TABLET PO SCH (08:13)
[2017-05-09] MEDS: METOPROLOL TARTRATE 25MG TABLET PO SCH ×2 (08:14→21:30)
[2017-05-09] MEDS: DABIGATRAN 150 MG XX SCH ×2 (08:15→18:01)
[2017-05-09] MEDS: LETAIRIS PO SCH (08:15)
[2017-05-09] MEDS: CLOTRIMAZOLE 1% CREAM 30GM TOP SCH ×2 (08:16→21:16)
[2017-05-09 19:00] VITALS: BP 123/61
[2017-05-10] MEDS: IPRATROPIUM/ALBUTEROL 0.5-3(2.5)MG/3ML NEB HHN SCH ×6 (00:48→21:45)
[2017-05-10] MEDS: SODIUM CHLORIDE 0.9% INJ 3ML FLUSH IVF SCH ×3 (07:05→23:10)
[2017-05-10] MEDS: SILDENAFIL CITRATE 20MG TABLET PO SCH ×3 (07:06→22:00)
[2017-05-10] MEDS: PANTOPRAZOLE 40MG DR TABLET PO SCH (07:08)
[2017-05-10 08:00] VITALS: BP 121/68
[2017-05-10] MEDS: DOCUSATE SODIUM 100MG CAPSULE PO SCH ×2 (08:15→17:14)
[2017-05-10] MEDS: FUROSEMIDE 40MG TABLET PO SCH (08:15)
[2017-05-10] MEDS: METOPROLOL TARTRATE 25MG TABLET PO SCH ×2 (08:16→21:00)
[2017-05-10] MEDS: DABIGATRAN 150 MG XX SCH ×2 (08:17→17:15)
[2017-05-10] MEDS: LETAIRIS PO SCH (08:17)
[2017-05-10] MEDS: CLOTRIMAZOLE 1% CREAM 30GM TOP SCH ×2 (08:18→23:09)
[2017-05-10 20:00] VITALS: BP 104/59
[2017-05-11] MEDS: IPRATROPIUM/ALBUTEROL 0.5-3(2.5)MG/3ML NEB HHN SCH ×5 (01:55→20:44)
[2017-05-11] MEDS: SODIUM CHLORIDE 0.9% INJ 3ML FLUSH IVF SCH ×2 (06:20→12:01)
[2017-05-11] MEDS: PANTOPRAZOLE 40MG DR TABLET PO SCH (06:21)
[2017-05-11] MEDS: SILDENAFIL CITRATE 20MG TABLET PO SCH ×3 (06:22→22:00)
[2017-05-11 08:00] VITALS: BP 106/56
[2017-05-11] MEDS: METOPROLOL TARTRATE 25MG TABLET PO SCH ×2 (08:20→21:00)
[2017-05-11] MEDS: DOCUSATE SODIUM 100MG CAPSULE PO SCH ×2 (08:24→17:44)
[2017-05-11] MEDS: LETAIRIS PO SCH (08:25)
[2017-05-11] MEDS: DABIGATRAN 150 MG XX SCH ×2 (08:27→17:45)
[2017-05-11] MEDS: CLOTRIMAZOLE 1% CREAM 30GM TOP SCH ×2 (08:28→22:30)
[2017-05-11 11:53] VITALS: BP 116/61
[2017-05-11] MEDS: FUROSEMIDE 40MG TABLET PO SCH (11:59)
[2017-05-11 20:00] VITALS: BP 107/74
[2017-05-12] MEDS: IPRATROPIUM/ALBUTEROL 0.5-3(2.5)MG/3ML NEB HHN SCH ×6 (01:01→20:05)
[2017-05-12] MEDS: SILDENAFIL CITRATE 20MG TABLET PO SCH ×3 (06:14→21:00)
[2017-05-12] MEDS: FAMOTIDINE 20MG TABLET PO SCH (06:14)
[2017-05-12 08:00] VITALS: BP 113/59
[2017-05-12] MEDS: CLOTRIMAZOLE 1% CREAM 30GM TOP SCH ×2 (08:38→21:01)
[2017-05-12] MEDS: FUROSEMIDE 40MG TABLET PO SCH (08:38)
[2017-05-12] MEDS: DOCUSATE SODIUM 100MG CAPSULE PO SCH ×2 (08:38→18:03)
[2017-05-12] MEDS: DABIGATRAN 150 MG XX SCH ×2 (08:39→18:03)
[2017-05-12] MEDS: LETAIRIS PO SCH (08:40)
[2017-05-12] MEDS: METOPROLOL TARTRATE 25MG TABLET PO SCH ×2 (08:42→21:00)
[2017-05-12 12:35] VITALS: BP 144/63
[2017-05-12 20:00] VITALS: BP 130/70
[2017-05-13] MEDS: IPRATROPIUM/ALBUTEROL 0.5-3(2.5)MG/3ML NEB HHN SCH ×4 (00:24→11:02)
[2017-05-13 06:16] LABS: BASOPHILS % 0.6 % (0.0-2.0); EOSINOPHILS % 4.7 % (0.0-5.0); HEMATOCRIT. 26.8 % (36.0-48.0); HEMOGLOBIN. 8.6 g/dL (12.0-16.0); LYMPHOCYTES % 44.7 % (20.0-50.0); MEAN CORPUSCULAR HEMOGLOBIN 27.9 pg (28.0-32.0); MEAN CORPUSCULAR VOLUME 87.6 fL (81.0-99.0); MEAN PLATELET VOLUME 8.4 fl (7.4-10.4); MONOCYTES % 10.1 % (2.0-8.0); NEUTROPHILS % 39.9 % (40.0-76.0); PLATELET 170 x1000/uL (130-400); RED BLOOD CELL COUNT 3.06 mill/uL (4.2-5.4); RED CELL DISTRIBUTION WIDTH 15.5 % (11.6-14.6)
[2017-05-13] MEDS: FAMOTIDINE 20MG TABLET PO SCH (06:34)
[2017-05-13] MEDS: SILDENAFIL CITRATE 20MG TABLET PO SCH ×2 (06:35→13:59)
[2017-05-13 08:00] VITALS: BP 117/63
[2017-05-13] MEDS: DOCUSATE SODIUM 100MG CAPSULE PO SCH (08:36)
[2017-05-13] MEDS: FUROSEMIDE 40MG TABLET PO SCH (08:36)
[2017-05-13] MEDS: METOPROLOL TARTRATE 25MG TABLET PO SCH (08:37)
[2017-05-13] MEDS: DABIGATRAN 150 MG XX SCH (08:38)
[2017-05-13] MEDS: LETAIRIS PO SCH (08:38)
[2017-05-13] MEDS: CLOTRIMAZOLE 1% CREAM 30GM TOP SCH (08:47)
[2017-05-13 11:27] VITALS: BP 117/63
[2017-05-13 12:54] VITALS: BP 117/63
== END 2017-05-13 14:10 | disposition home health service (06) | DRG 91 ==
PROVIDERS: ADMIT Psychiatry & Neurology Neurology; ATTEND Family Medicine
PROC: 5A09557 Assistance with Respiratory Ventilation, Greater than 96 Consecutive Hours, Continuous Positive Airway Pressure (ICD-10-PCS; principal; 2017-05-08)
DX: G92 Toxic encephalopathy (principal); I50.33 Acute on chronic diastolic (congestive) heart failure; J96.21 Acute and chronic respiratory failure with hypoxia; J69.0 Pneumonitis due to inhalation of food and vomit; J96.22 Acute and chronic respiratory failure with hypercapnia; I42.1 Obstructive hypertrophic cardiomyopathy; J44.1 Chronic obstructive pulmonary disease with (acute) exacerbation; N39.0 Urinary tract infection, site not specified; D64.9 Anemia, unspecified; I11.0 Hypertensive heart disease with heart failure; I27.2 Other secondary pulmonary hypertension; I48.91 Unspecified atrial fibrillation; Z90.710 Acquired absence of both cervix and uterus; Z99.81 Dependence on supplemental oxygen; J32.4 Chronic pansinusitis; R26.9 Unspecified abnormalities of gait and mobility; Z79.899 Other long term (current) drug therapy; Z98.49 Cataract extraction status, unspecified eye; Z79.82 Long term (current) use of aspirin; Z79.01 Long term (current) use of anticoagulants; Z88.0 Allergy status to penicillin; Z88.8 Allergy status to other drugs, medicaments and biological substances
CPT/HCPCS: 36415; 80048; 82550; 82553; 84484; 85025; 94640; 94660; 94664; 97110; 97116; 97162; 97166; 97530; 97532; 97535; J3370; J7050; J7060; J7620

== ENCOUNTER 2021-12-24 10:02 | Inpatient (IN) | payer MEDICARE, MEDICAID ==
[~2021-12-24] VITALS: Ht 170.2 cm; Wt 98.9 kg
[~2021-12-24 10:02] MED LIST changes: -ACET500T97 PO; -ALBU18HF2 IH; +ALBU2.5V13 HHN; -AMLO10TA4 PO; +APIX2.5T PO; -ASPI-1158 PO; +ASPI-1406 PO; -ATOR80TA PO; -AZEL137S7 NS; -CHOL40002 PO; -CLOT15CR4 TP; +DIGO-26 PO; +DIGO125T80 PO; -DIGO125T82 PO; +DONE10TA11 PO; +DONE10TA36 MT; +FORM20VI IH; -FURO-152 PO; -HYDR-3511 PO; +HYDR-4134 MT; -LETAIRIS; -LISI-604 PO; +MACI10TA2 PO; -MEMA1CAP MT; +MEMA28CA5 PO; -METO50TA5 PO; -MIRT-91 PO; +MONT10TA21 PO; -MONT10TA24 PO; -NEBI10TA2 PO; +NITR100C MT; -P20 PO; +PANT40SU MT; -POTA99TA18 PO; -PRED10TA PO; -PRED10TA23 PO; +QUET25TA MT; +QUET25TA PO; -REV20 GT; +REVE175V IH; -SENN8.6C5 PO; -SILD20TA PO; -THEOL PEG; -VALS320T2 PO; -VIC PO
[2021-12-24 10:29] LABS: HEMATOCRIT. 31.8 % (36.0-48.0); HEMOGLOBIN. 9.9 g/dL (12.0-16.0); MEAN CORPUSCULAR HEMOGLOBIN 29.4 pg (28.0-32.0); MEAN CORPUSCULAR VOLUME 94.5 fL (81.0-99.0); MEAN PLATELET VOLUME 9.7 fl (7.4-10.4); PLATELET 145 x1000/uL (130-400); RED BLOOD CELL COUNT 3.37 mill/uL (4.2-5.4); RED CELL DISTRIBUTION WIDTH 17.6 % (11.6-14.6)
[2021-12-24 10:41] LABS: CHLORIDE 97 mEq/L (98-107)
[2021-12-24 10:45] LABS: PLATELET ESTIMATE NORMAL
[2021-12-24 11:03] LABS: INR 1.4; PROTHROMBIN TIME 14.4 sec (9.6-11.0)
[2021-12-24 12:15] LABS: CLARITY URINE CLEAR (CLEAR); COLOR URINE DARK YELLOW (YELLOW); KETONES URINE 1+ (NEGATIVE); LEUKOCYTE ESTERASE URINE TRACE (NEGATIVE); NITRITE URINE NEGATIVE (NEGATIVE); OCCULT BLOOD URINE NEGATIVE (NEGATIVE); PROTEIN URINE TRACE (NEGATIVE); SPECIFIC GRAVITY URINE 1.014 (1.005-1.030)
[2021-12-24 12:32] LABS: BG BASE EXCESS 7.3 mmol/L (-2.0-2.0); BG CARBOXYHEMOGLOBIN 0.1 % (0.5-1.5); BG DEOXYHEMOGLOBIN 5.5 % (0.0-5.0); BG FRACTION INSPIRED OXYGEN 28; BG HCO3 ACT 33.6 mmol/L (22.0-26.0); BG METHEMOGLOBIN 0.3 % (0.0-1.5); BG OXYGEN SATURATION 94.5 % (92.0-98.5); BG OXYHEMOGLOBIN 94.1 % (94.0-97.0); BG PCO2 56.6 mmHg (35.0-45.0); BG PH 7.392 (7.350-7.450); BG PO2 76.1 mmHg (75.0-100.0); BG SAMPLE SITE LEFT BRACHIAL; BG TOTAL HEMOGLOBIN 10.9 g/dL (12.0-18.0); BG VENT MODE NASAL CANNULA
[2021-12-24] MEDS ORDERED: LEVOFLOXACIN 500MG PREMIX 100 ML IV ONE (12:45)
[2021-12-24] MEDS ORDERED: IPRATROPIUM/ALBUTEROL 0.5-3(2.5)MG/3ML NEB HHN PRN (14:30)
[2021-12-24 14:44] LABS: BG BASE EXCESS 9.1 mmol/L (-2.0-2.0); BG CARBOXYHEMOGLOBIN 0.3 % (0.5-1.5); BG DEOXYHEMOGLOBIN 2.2 % (0.0-5.0); BG FRACTION INSPIRED OXYGEN 35; BG HCO3 ACT 33.5 mmol/L (22.0-26.0); BG METHEMOGLOBIN 0.3 % (0.0-1.5); BG OXYGEN SATURATION 97.8 % (92.0-98.5); BG OXYHEMOGLOBIN 97.2 % (94.0-97.0); BG PCO2 45.5 mmHg (35.0-45.0); BG PH 7.485 (7.350-7.450); BG PO2 102.5 mmHg (75.0-100.0); BG SAMPLE SITE LEFT BRACHIAL; BG TOTAL HEMOGLOBIN 10.6 g/dL (12.0-18.0); BG VENT MODE MASK - BIPAP
[2021-12-24] MEDS ORDERED: SODIUM CHLORIDE 0.9% 1,000 ML IV SCH (15:00)
[2021-12-24 15:50] VITALS: BP 134/55
[2021-12-24 16:35] VITALS: BP 135/56
[2021-12-24] MEDS ORDERED: ALBUTEROL (0.083%) 2.5MG/3ML NEB HHN PRN (16:45)
[2021-12-24] MEDS ORDERED: ALLOPURINOL 100 MG TABLET PO SCH (17:00)
[2021-12-24] MEDS ORDERED: APIXABAN 2.5 MG TABLET PO SCH (17:00)
[2021-12-24] MEDS ORDERED: ASPIRIN 81MG EC TABLET PO SCH (17:00)
[2021-12-24 17:23] LABS: BG BASE EXCESS 9.2 mmol/L (-2.0-2.0); BG CARBOXYHEMOGLOBIN 0.3 % (0.5-1.5); BG DEOXYHEMOGLOBIN 2.5 % (0.0-5.0); BG FRACTION INSPIRED OXYGEN 36; BG HCO3 ACT 35.7 mmol/L (22.0-26.0); BG METHEMOGLOBIN 0.3 % (0.0-1.5); BG OXYGEN SATURATION 97.5 % (92.0-98.5); BG OXYHEMOGLOBIN 96.9 % (94.0-97.0); BG PCO2 59.7 mmHg (35.0-45.0); BG PH 7.394 (7.350-7.450); BG PO2 105.2 mmHg (75.0-100.0); BG SAMPLE SITE RIGHT BRACHIAL; BG TOTAL HEMOGLOBIN 10.4 g/dL (12.0-18.0); BG VENT MODE NASAL CANNULA
[2021-12-24] MEDS: HYDRALAZINE HCL 25MG TABLET PO SCH (17:33)
[2021-12-24 18:00] VITALS: BP 143/76
[2021-12-24 20:00] VITALS: BP 121/64
[2021-12-24] MEDS: IPRATROPIUM/ALBUTEROL 0.5-3(2.5)MG/3ML NEB HHN SCH (20:40)
[2021-12-24] MEDS: BUDESONIDE 0.5MG/2ML NEB HHN SCH (20:40)
[2021-12-24 21:00] VITALS: BP 119/56
[2021-12-24] MEDS: QUETIAPINE FUMARATE 25MG TABLET PO SCH (21:07)
[2021-12-24] MEDS: SILDENAFIL CITRATE 20MG TABLET PO SCH (21:07)
[2021-12-24 22:00] VITALS: BP 93/42
[2021-12-24] MEDS ORDERED: SILDENAFIL CITRATE 20MG TABLET PO SCH (22:00)
[2021-12-25] VITALS (16 sets, daily range): BP systolic 85–121; BP diastolic 37–81
[2021-12-25] MEDS: IPRATROPIUM/ALBUTEROL 0.5-3(2.5)MG/3ML NEB HHN SCH ×3 (03:18→14:05)
[2021-12-25] MEDS: SILDENAFIL CITRATE 20MG TABLET PO SCH ×3 (05:51→21:12)
[2021-12-25] MEDS: BUDESONIDE 0.5MG/2ML NEB HHN SCH ×2 (08:33→18:00)
[2021-12-25] MEDS: HYDRALAZINE HCL 25MG TABLET PO SCH ×3 (09:00→17:00)
[2021-12-25] MEDS ORDERED: MONTELUKAST SODIUM 10MG TABLET PO SCH (09:00)
[2021-12-25] MEDS ORDERED: SODIUM CHLORIDE 0.9% 250 ML IV ONE (15:00)
[2021-12-25] MEDS: ACETAMINOPHEN 325MG TABLET PO PRN (15:06)
[2021-12-25] MEDS ORDERED: MAGNESIUM HYDROXIDE 400MG/5ML 30ML UDC PO PRN (15:15)
[2021-12-25] MEDS ORDERED: SIMETHICONE 80MG TABLET CHEW PO PRN (16:15)
[2021-12-25 16:46] LABS: HEMATOCRIT 29.9 % (36.0-48.0); HEMOGLOBIN 9.5 g/dL (12.0-16.0); MEAN CORPUSCULAR HEMOGLOBIN 30.3 pg (28.0-32.0); MEAN CORPUSCULAR VOLUME 95.2 fL (81.0-99.0); PLATELET 110 x1000/uL (130-400); RED BLOOD CELL COUNT 3.14 mill/uL (4.2-5.4); RED CELL DISTRIBUTION WIDTH 16.7 % (11.6-14.6)
[2021-12-25] MEDS ORDERED: DABIGATRAN ETEXILATE MESYLATE 150 MG PO SCH (17:00)
[2021-12-25] MEDS: DONEPEZIL HCL 10MG TABLET PO SCH (17:46)
[2021-12-25] MEDS: FAMOTIDINE 20MG TABLET PO SCH (17:46)
[2021-12-25] MEDS: ALLOPURINOL 100 MG TABLET PO SCH (17:47)
[2021-12-25] MEDS: MONTELUKAST SODIUM 10MG TABLET PO SCH (17:47)
[2021-12-25] MEDS: METHYLPREDNISOLONE SOD SUCC 40 MG/ML VIAL IV SCH (17:48)
[2021-12-25] MEDS ORDERED: DIGOXIN 125MCG TABLET PO SCH (18:00)
[2021-12-25 18:25] LABS: BG BASE EXCESS 12.1 mmol/L (-2.0-2.0); BG CARBOXYHEMOGLOBIN 0.3 % (0.5-1.5); BG DEOXYHEMOGLOBIN 2.6 % (0.0-5.0); BG FRACTION INSPIRED OXYGEN 35; BG HCO3 ACT 37.9 mmol/L (22.0-26.0); BG METHEMOGLOBIN 0.2 % (0.0-1.5); BG OXYGEN SATURATION 97.4 % (92.0-98.5); BG OXYHEMOGLOBIN 96.9 % (94.0-97.0); BG PCO2 56.2 mmHg (35.0-45.0); BG PH 7.447 (7.350-7.450); BG PO2 96.1 mmHg (75.0-100.0); BG SAMPLE SITE RIGHT RADIAL; BG TOTAL HEMOGLOBIN 10.4 g/dL (12.0-18.0); BG VENT MODE MASK - BIPAP
[2021-12-25] MEDS: QUETIAPINE FUMARATE 25MG TABLET PO SCH (21:12)
[2021-12-26] VITALS (11 sets, daily range): BP systolic 88–122; BP diastolic 44–71
[2021-12-26] MEDS: IPRATROPIUM/ALBUTEROL 0.5-3(2.5)MG/3ML NEB HHN SCH ×3 (07:47→20:30)
[2021-12-26] MEDS: METHYLPREDNISOLONE SOD SUCC 40 MG/ML VIAL IV SCH ×2 (07:53→17:45)
[2021-12-26] MEDS: SILDENAFIL CITRATE 20MG TABLET PO SCH ×3 (07:54→22:11)
[2021-12-26] MEDS: HYDRALAZINE HCL 25MG TABLET PO SCH ×3 (08:56→17:46)
[2021-12-26] MEDS: DONEPEZIL HCL 10MG TABLET PO SCH (08:56)
[2021-12-26] MEDS: ALLOPURINOL 100 MG TABLET PO SCH ×2 (08:56→17:46)
[2021-12-26] MEDS ORDERED: REVE175V IH (12:41)
[2021-12-26] MEDS ORDERED: NITR-87 PO (12:42)
[2021-12-26] MEDS: BUDESONIDE 0.5MG/2ML NEB HHN SCH ×2 (14:47→20:30)
[2021-12-26] MEDS: MONTELUKAST SODIUM 10MG TABLET PO SCH (17:46)
[2021-12-26] MEDS: QUETIAPINE FUMARATE 25MG TABLET PO SCH (22:11)
[2021-12-26] MEDS: ACETAMINOPHEN 325MG TABLET PO PRN (22:12)
[2021-12-26] MEDS: FAMOTIDINE 20MG TABLET PO SCH (22:12)
[2021-12-27] MEDS: IPRATROPIUM/ALBUTEROL 0.5-3(2.5)MG/3ML NEB HHN SCH
[2021-12-27 04:00] VITALS: BP 128/63
[2021-12-27] MEDS: METHYLPREDNISOLONE SOD SUCC 40 MG/ML VIAL IV SCH (05:37)
[2021-12-27] MEDS: SILDENAFIL CITRATE 20MG TABLET PO SCH ×3 (05:37→21:59)
[2021-12-27 08:00] VITALS: BP 143/84
[2021-12-27] MEDS: BUDESONIDE 0.5MG/2ML NEB HHN SCH ×2 (09:07→20:11)
[2021-12-27] MEDS: ALLOPURINOL 100 MG TABLET PO SCH ×2 (09:35→17:46)
[2021-12-27] MEDS: DONEPEZIL HCL 10MG TABLET PO SCH (09:35)
[2021-12-27] MEDS: HYDRALAZINE HCL 25MG TABLET PO SCH ×3 (09:36→17:47)
[2021-12-27 11:04] LABS: BASOPHILS % 0.1 % (0.0-2.0); HEMOGLOBIN. 10.1 g/dL (12.0-16.0); LYMPHOCYTES % 21.6 % (20.0-50.0); MEAN CORPUSCULAR HEMOGLOBIN 29.9 pg (28.0-32.0); MEAN CORPUSCULAR VOLUME 94.6 fL (81.0-99.0); MEAN PLATELET VOLUME 8.9 fl (7.4-10.4); MONOCYTES % 2.2 % (2.0-8.0); NEUTROPHILS % 76.1 % (40.0-76.0); PLATELET 124 x1000/uL (130-400); RED BLOOD CELL COUNT 3.38 mill/uL (4.2-5.4); RED CELL DISTRIBUTION WIDTH 17.5 % (11.6-14.6)
[2021-12-27 11:18] LABS: CHLORIDE 94 mEq/L (98-107)
[2021-12-27 12:00] VITALS: BP 121/65
[2021-12-27 16:00] VITALS: BP 112/74
[2021-12-27] MEDS: MONTELUKAST SODIUM 10MG TABLET PO SCH (17:46)
[2021-12-27 20:00] VITALS: BP 107/46
[2021-12-27] MEDS: QUETIAPINE FUMARATE 25MG TABLET PO SCH (21:59)
[2021-12-27] MEDS: FAMOTIDINE 20MG TABLET PO SCH (21:59)
[2021-12-28] VITALS (9 sets, daily range): BP systolic 100–132; BP diastolic 45–80
[2021-12-28] MEDS: SILDENAFIL CITRATE 20MG TABLET PO SCH ×2 (05:56→14:53)
[2021-12-28] MEDS: BUDESONIDE 0.5MG/2ML NEB HHN SCH (08:48)
[2021-12-28] MEDS: ALLOPURINOL 100 MG TABLET PO SCH ×2 (08:59→16:56)
[2021-12-28] MEDS: HYDRALAZINE HCL 25MG TABLET PO SCH ×3 (08:59→16:56)
[2021-12-28] MEDS: DONEPEZIL HCL 10MG TABLET PO SCH (08:59)
[2021-12-28] MEDS ORDERED: METHYLPREDNISOLONE SOD SUCC 40 MG/ML VIAL IV SCH (09:00)
[2021-12-28] MEDS ORDERED: FUROSEMIDE 20MG TABLET PO SCH (11:30)
[2021-12-28] MEDS ORDERED: REV20 PO (12:09)
[2021-12-28] MEDS ORDERED: PULM50 HHN (12:09)
[2021-12-28] MEDS: MONTELUKAST SODIUM 10MG TABLET PO SCH (16:56)
== END 2021-12-28 19:53 | disposition home or self-care (01) | DRG 291 ==
LOC: ER 10:02 → 5EST 12:43 → ENRESERV 13:56 → CANBEDREQ 23:26
PROVIDERS: ADMIT Family Medicine; ATTEND Family Medicine
PROC: 5A09357 Assistance with Respiratory Ventilation, Less than 24 Consecutive Hours, Continuous Positive Airway Pressure (ICD-10-PCS; principal; 2021-12-24)
PROC: 5A09357 Assistance with Respiratory Ventilation, Less than 24 Consecutive Hours, Continuous Positive Airway Pressure (ICD-10-PCS; 2021-12-25)
PROC: 5A09357 Assistance with Respiratory Ventilation, Less than 24 Consecutive Hours, Continuous Positive Airway Pressure (ICD-10-PCS; 2021-12-26)
PROC: 5A09357 Assistance with Respiratory Ventilation, Less than 24 Consecutive Hours, Continuous Positive Airway Pressure (ICD-10-PCS; 2021-12-27)
DX: I11.0 Hypertensive heart disease with heart failure (principal); J96.01 Acute respiratory failure with hypoxia; I50.33 Acute on chronic diastolic (congestive) heart failure; J44.1 Chronic obstructive pulmonary disease with (acute) exacerbation; N17.9 Acute kidney failure, unspecified; E66.2 Morbid (severe) obesity with alveolar hypoventilation; D64.9 Anemia, unspecified; E78.5 Hyperlipidemia, unspecified; R56.9 Unspecified convulsions; Z53.20 Procedure and treatment not carried out because of patient's decision for unspecified reasons; F03.90 Unspecified dementia, unspecified severity, without behavioral disturbance, psychotic disturbance, mood disturbance, and anxiety; E78.00 Pure hypercholesterolemia, unspecified; I27.20 Pulmonary hypertension, unspecified; R00.1 Bradycardia, unspecified; I48.91 Unspecified atrial fibrillation; Z68.34 Body mass index [BMI] 34.0-34.9, adult; Z74.01 Bed confinement status; Z90.5 Acquired absence of kidney; Z99.81 Dependence on supplemental oxygen; Z88.0 Allergy status to penicillin; Z91.013 Allergy to seafood; Z91.018 Allergy to other foods; Z79.899 Other long term (current) drug therapy; Z79.82 Long term (current) use of aspirin
CPT/HCPCS: 36415; 36600; 71045; 80048; 80053; 81003; 82140; 82375; 82805; 83880; 84484; 85025; 85027; 93005; 94640; 94660; 97162; 99291; C1893; J1956; J2920; J7626

== ENCOUNTER 2022-02-17 21:10 | Inpatient (IN) | payer MEDICARE, MEDICAID ==
[~2022-02-17] VITALS: Ht 175.3 cm; Wt 93.4 kg
[2022-02-17] MEDS: ALBUTEROL (0.083%) 2.5MG/3ML NEB HHN SCH ×2 (02:16→03:07)
[~2022-02-17 21:10] MED LIST changes: -ALBU05 IH; -ALBU2.5V13 HHN; -DIGO125T80 PO; -DONE10TA36 MT; +MEMA28CA16 PO; -MEMA28CA5 PO; -NITR100C MT; +PULM50 HHN; -QUET25TA MT; -REVE175V IH
[2022-02-17 22:38] LABS: BG BASE EXCESS 10.5 mmol/L (-2.0-2.0); BG CARBOXYHEMOGLOBIN 0.3 % (0.5-1.5); BG DEOXYHEMOGLOBIN 1.8 % (0.0-5.0); BG FRACTION INSPIRED OXYGEN 34; BG METHEMOGLOBIN 0.2 % (0.0-1.5); BG OXYGEN SATURATION 98.2 % (92.0-98.5); BG OXYHEMOGLOBIN 97.7 % (94.0-97.0); BG PCO2 70.5 mmHg (35.0-45.0); BG PH 7.349 (7.350-7.450); BG PO2 126.9 mmHg (75.0-100.0); BG SAMPLE SITE RIGHT RADIAL; BG TOTAL HEMOGLOBIN 9.5 g/dL (12.0-18.0); BG VENT MODE NASAL CANNULA
[2022-02-17] MEDS ORDERED: IPRATROPIUM BROMIDE (0.02%) 0.5MG/2.5ML NEB HHN SCH (22:56)
[2022-02-17] MEDS ORDERED: METHYLPREDNISOLONE SOD SUCC 125 MG/2 ML VIAL IV SCH (22:56)
[2022-02-17] MEDS ORDERED: CEFTRIAXONE 1 G PREMIX 50 ML IV ONE (23:00)
[2022-02-17] MEDS ORDERED: AZITHROMYCIN 500 MG in DEXT 5% WATER 250 ML IV SCH (23:00)
[2022-02-17] MEDS ORDERED: CEFTRIAXONE 1 G PREMIX 50 ML IV SCH (23:15)
[2022-02-17 23:27] LABS: BASOPHILS % 0.5 % (0.0-2.0); EOSINOPHILS % 13.9 % (0.0-5.0); HEMATOCRIT. 28.9 % (36.0-48.0); HEMOGLOBIN. 8.9 g/dL (12.0-16.0); LYMPHOCYTES % 13.5 % (20.0-50.0); MEAN CORPUSCULAR HEMOGLOBIN 29.8 pg (28.0-32.0); MEAN CORPUSCULAR VOLUME 96.3 fL (81.0-99.0); MEAN PLATELET VOLUME 8.6 fl (7.4-10.4); MONOCYTES % 10.5 % (2.0-8.0); NEUTROPHILS % 61.6 % (40.0-76.0); PLATELET 136 x1000/uL (130-400); RED CELL DISTRIBUTION WIDTH 16.4 % (11.6-14.6)
[2022-02-17 23:31] LABS: CHLORIDE 98 mEq/L (98-107)
[2022-02-18] MEDS ORDERED: ALBUTEROL (0.083%) 2.5MG/3ML NEB HHN SCH (02:30)
[2022-02-18] MEDS ORDERED: MAGNESIUM/ALUMINUM HYDROXIDE/SIMETHICONE 30ML UDC PO PRN (07:30)
[2022-02-18] MEDS ORDERED: CLONIDINE 0.1MG TABLET PO PRN (07:30)
[2022-02-18] MEDS ORDERED: DOCUSATE SODIUM 100MG CAPSULE PO PRN (07:30)
[2022-02-18] MEDS ORDERED: DIPHENHYDRAMINE 50MG/ML VIAL IV PRN (07:30)
[2022-02-18] MEDS ORDERED: GUAIFENESIN 200MG/10ML SUGAR FREE UDC PO PRN (07:30)
[2022-02-18] MEDS ORDERED: HYDROCODONE/ACETAMINOPHEN 5/325MG TABLET PO PRN (07:30)
[2022-02-18] MEDS ORDERED: NA PHOS,M-B/NA PHOS,DI-BA ENEMA 118ML PR PRN (07:30)
[2022-02-18] MEDS ORDERED: IPRATROPIUM/ALBUTEROL 0.5-3(2.5)MG/3ML NEB NEB PRN (07:30)
[2022-02-18] MEDS ORDERED: ONDANSETRON HCL 4MG/2ML INJ IV PRN (07:30)
[2022-02-18] MEDS ORDERED: ACETAMINOPHEN 325MG TABLET PO PRN (07:30)
[2022-02-18] MEDS ORDERED: MORPHINE SULFATE 2 MG/ML CPJ (NOT FOR IM USE) IV PRN (07:30)
[2022-02-18] MEDS ORDERED: NALOXONE HCL 0.4MG/ML VIAL IV PRN (07:45)
[2022-02-18 08:32] VITALS: BP 127/52
[2022-02-18 12:00] VITALS: BP 130/70
[2022-02-18] MEDS: FUROSEMIDE 40MG/4ML VIAL IV SCH (13:07)
[2022-02-18] MEDS: METHYLPREDNISOLONE SOD SUCC 125 MG/2 ML VIAL IV SCH ×3 (13:07→20:06)
[2022-02-18] MEDS: ENOXAPARIN 40MG/0.4ML SYR SUBCUT SCH (13:08)
[2022-02-18] MEDS: ASPIRIN 81MG EC TABLET PO SCH (13:08)
[2022-02-18 16:00] VITALS: BP 120/56
[2022-02-18 16:14] LABS: CREATINE KINASE MB FRACTION 2.3 ng/mL (0.5-3.6); T4 FREE 0.98 ng/dL (0.76-1.46)
[2022-02-18 18:36] LABS: DIGOXIN 1.2 ng/mL (0.9-2.0)
[2022-02-18 20:00] VITALS: BP_SYST 126; BP_SYST 159; BP_DIAS 60; BP_DIAS 66
[2022-02-18] MEDS: BUDESONIDE 0.5MG/2ML NEB HHN SCH (21:32)
[2022-02-19] VITALS: BP 133/63
[2022-02-19] MEDS: METHYLPREDNISOLONE SOD SUCC 125 MG/2 ML VIAL IV SCH ×2 (01:33→09:11)
[2022-02-19 02:11] LABS: CREATINE KINASE MB FRACTION 2.5 ng/mL (0.5-3.6)
[2022-02-19 04:00] VITALS: BP 140/64
[2022-02-19 08:00] VITALS: BP 141/73
[2022-02-19 08:47] LABS: CHLORIDE 101 mEq/L (98-107); CREATINE KINASE 70 IU/L (26-192); CREATINE KINASE MB FRACTION 2.5 ng/mL (0.5-3.6)
[2022-02-19] MEDS: ASPIRIN 81MG EC TABLET PO SCH (09:11)
[2022-02-19] MEDS: FUROSEMIDE 40MG/4ML VIAL IV SCH (09:11)
[2022-02-19] MEDS: ENOXAPARIN 40MG/0.4ML SYR SUBCUT SCH (09:11)
[2022-02-19] MEDS: BUDESONIDE 0.5MG/2ML NEB HHN SCH ×2 (09:41→21:29)
[2022-02-19 12:00] VITALS: BP 140/60
[2022-02-19 12:46] LABS: HEMATOCRIT. 28.9 % (36.0-48.0); HEMOGLOBIN. 8.9 g/dL (12.0-16.0); MEAN CORPUSCULAR HEMOGLOBIN 29.9 pg (28.0-32.0); MEAN CORPUSCULAR VOLUME 96.5 fL (81.0-99.0); MEAN PLATELET VOLUME 8.6 fl (7.4-10.4); PLATELET 150 x1000/uL (130-400); RED BLOOD CELL COUNT 2.99 mill/uL (4.2-5.4); RED CELL DISTRIBUTION WIDTH 16.1 % (11.6-14.6)
[2022-02-19 13:52] LABS: PLATELET ESTIMATE NORMAL
[2022-02-19] MEDS: SILDENAFIL CITRATE 20MG TABLET PO SCH ×2 (14:07→21:04)
[2022-02-19 16:00] VITALS: BP 138/66
[2022-02-19] MEDS: IPRATROPIUM/ALBUTEROL 0.5-3(2.5)MG/3ML NEB HHN SCH ×2 (17:03→21:29)
[2022-02-19 20:00] VITALS: BP 129/60
[2022-02-19] MEDS: METHYLPREDNISOLONE SOD SUCC 40 MG/ML VIAL IV SCH (20:58)
[2022-02-19] MEDS: FLUTICASONE PROPIONATE 50MCG/SPRAY BOTTLE BOTHNSTRLS SCH (21:00)
[2022-02-20] VITALS: BP 133/62
[2022-02-20] MEDS: IPRATROPIUM/ALBUTEROL 0.5-3(2.5)MG/3ML NEB HHN SCH ×4 (01:18→20:29)
[2022-02-20 04:00] VITALS: BP 114/70
[2022-02-20] MEDS: SILDENAFIL CITRATE 20MG TABLET PO SCH ×3 (06:23→21:14)
[2022-02-20 08:10] VITALS: BP 147/73
[2022-02-20] MEDS: FLUTICASONE PROPIONATE 50MCG/SPRAY BOTTLE BOTHNSTRLS SCH ×2 (08:29→21:14)
[2022-02-20] MEDS: ASPIRIN 81MG EC TABLET PO SCH (08:30)
[2022-02-20] MEDS: ENOXAPARIN 40MG/0.4ML SYR SUBCUT SCH (08:30)
[2022-02-20] MEDS: METHYLPREDNISOLONE SOD SUCC 40 MG/ML VIAL IV SCH ×2 (08:30→21:14)
[2022-02-20] MEDS: FUROSEMIDE 40MG/4ML VIAL IV SCH (08:30)
[2022-02-20] MEDS: BUDESONIDE 0.5MG/2ML NEB HHN SCH ×2 (08:51→20:29)
[2022-02-20 12:28] VITALS: BP 139/70
[2022-02-20] MEDS: DILTIAZEM HCL 30MG TABLET PO SCH ×2 (13:59→21:14)
[2022-02-20 16:22] VITALS: BP 111/73
[2022-02-20 20:00] VITALS: BP 123/74
[2022-02-20] MEDS ORDERED: QUETIAPINE FUMARATE 25MG TABLET PO SCH (21:00)
[2022-02-21] VITALS: BP 140/79
[2022-02-21] MEDS: IPRATROPIUM/ALBUTEROL 0.5-3(2.5)MG/3ML NEB HHN SCH ×3 (02:16→13:06)
[2022-02-21 03:49] VITALS: BP 158/89
[2022-02-21] MEDS: DILTIAZEM HCL 30MG TABLET PO SCH (05:27)
[2022-02-21] MEDS: SILDENAFIL CITRATE 20MG TABLET PO SCH (05:27)
[2022-02-21 07:36] VITALS: BP 138/69
[2022-02-21 08:00] VITALS: BP 138/69
[2022-02-21] MEDS: FLUTICASONE PROPIONATE 50MCG/SPRAY BOTTLE BOTHNSTRLS SCH (08:40)
[2022-02-21] MEDS: ASPIRIN 81MG EC TABLET PO SCH (08:41)
[2022-02-21] MEDS: ENOXAPARIN 40MG/0.4ML SYR SUBCUT SCH (08:41)
[2022-02-21] MEDS: FUROSEMIDE 40MG/4ML VIAL IV SCH (08:41)
[2022-02-21] MEDS: METHYLPREDNISOLONE SOD SUCC 40 MG/ML VIAL IV SCH (08:41)
[2022-02-21 12:30] VITALS: BP 139/77
[2022-02-21] MEDS: BUDESONIDE 0.5MG/2ML NEB HHN SCH (13:06)
== END 2022-02-21 16:18 | disposition home or self-care (01) | DRG 291 ==
LOC: ER 21:10 → 6WST 02-18 00:33 → ENRESERV 02-18 04:05
PROVIDERS: ADMIT Internal Medicine; ATTEND Internal Medicine
DX: I11.0 Hypertensive heart disease with heart failure (principal); I50.33 Acute on chronic diastolic (congestive) heart failure; J96.02 Acute respiratory failure with hypercapnia; J44.1 Chronic obstructive pulmonary disease with (acute) exacerbation; G93.40 Encephalopathy, unspecified; N17.9 Acute kidney failure, unspecified; E44.1 Mild protein-calorie malnutrition; E66.2 Morbid (severe) obesity with alveolar hypoventilation; E87.2 Acidosis; I25.10 Atherosclerotic heart disease of native coronary artery without angina pectoris; Z20.822 Contact with and (suspected) exposure to COVID-19; I48.91 Unspecified atrial fibrillation; E78.5 Hyperlipidemia, unspecified; E78.00 Pure hypercholesterolemia, unspecified; D64.9 Anemia, unspecified; I27.20 Pulmonary hypertension, unspecified; D72.10 Eosinophilia, unspecified; I37.1 Nonrheumatic pulmonary valve insufficiency; F03.90 Unspecified dementia, unspecified severity, without behavioral disturbance, psychotic disturbance, mood disturbance, and anxiety; Z68.30 Body mass index [BMI] 30.0-30.9, adult; Z99.81 Dependence on supplemental oxygen; Z90.5 Acquired absence of kidney; Z88.0 Allergy status to penicillin; Z88.8 Allergy status to other drugs, medicaments and biological substances; Z79.01 Long term (current) use of anticoagulants; Z79.899 Other long term (current) drug therapy
CPT/HCPCS: 36415; 36600; 71045; 80053; 80061; 80162; 82375; 82550; 82553; 82805; 83036; 83880; 84439; 84443; 84484; 85025; 85379; 87426; 93005; 93306; 94640; 94660; 99285; C9803; J0456; J0696; J1650; J1940; J2920; J2930; J7060; J7626

== ENCOUNTER 2024-07-12 23:29 | Inpatient (IN) | payer MEDICARE, MEDICAID ==
[~2024-07-12] VITALS: Ht 175.3 cm; Wt 71.7 kg
[~2024-07-12 23:29] MED LIST changes: -APIX2.5T PO; -ASPI-1406 PO; +AZEL137S10 BOTHNSTRLS; +BUDE90AE3 IH; -DIGO-26 PO; -DONE10TA11 PO; -FLUT1DIS5 IH; -FORM20VI IH; +FURO-151 PO; -HYDR-4134 MT; +IPRA3AMP9 NEB; -MEMA28CA16 PO; +MONT-46 PO; -MONT10TA21 PO; -NEBI5TAB3 PO; -PANT40SU MT; -PULM50 HHN; -QUET25TA PO; +SILD20TA13 PO; +TIZA4CAP PO
[2024-07-13] VITALS (7 sets, daily range): BP systolic 154–171; BP diastolic 73–98; PULSE 64–84; RESP 16–18; TEMP 36.6696–37.94748; O2SAT 98–100
[2024-07-13] MEDS: ALBUTEROL (0.083%) 2.5MG/3ML NEB HHN STA (00:16)
[2024-07-13] MEDS: IPRATROPIUM BROMIDE (0.02%) 0.5MG/2.5ML NEB HHN STA (00:16)
[2024-07-13 00:45] LABS: BASOPHILS % 0.6 % (0.0-2.0); HEMATOCRIT. 31.9 % (36.0-48.0); HEMOGLOBIN. 10.3 g/dL (12.0-16.0); LYMPHOCYTES % 30.8 % (20.0-50.0); MEAN CORPUSCULAR HEMOGLOBIN 29.8 pg (28.0-32.0); MEAN CORPUSCULAR HGB CONC 32.3 g/dL (31.0-37.0); MEAN CORPUSCULAR VOLUME 92.3 fL (81.0-99.0); MEAN PLATELET VOLUME 7.9 fl (7.4-10.4); NEUTROPHILS % 60.6 % (40.0-76.0); PLATELET 155 x1000/uL (130-400); RED BLOOD CELL COUNT 3.45 mill/uL (4.2-5.4); RED CELL DISTRIBUTION WIDTH 15.2 % (11.6-14.6); WHITE BLOOD COUNT 4.6 x1000/uL (4.5-11.0)
[2024-07-13 00:50] LABS: CHLORIDE 102 mEq/L (98-107); POTASSIUM 3.6 mEq/L (3.5-5.1); SODIUM 142 mEq/L (136-145)
[2024-07-13 00:51] LABS: CALCIUM 9.8 mg/dL (8.7-10.4); CARBON DIOXIDE 36 mEq/L (21-32)
[2024-07-13 00:56] LABS: CREATININE 0.8 mg/dL (0.6-1.0); GLUCOSE 148 mg/dL (70-105); UREA NITROGEN BLOOD 17 mg/dL (9-23)
[2024-07-13 01:26] LABS: TROPONIN I HIGH SENSITIVITY 48 ng/L (3.0-34)
[2024-07-13] MEDS ORDERED: IPRATROPIUM/ALBUTEROL 0.5-3(2.5)MG/3ML NEB NEB PRN (05:45)
[2024-07-13] MEDS ORDERED: ONDANSETRON HCL 4MG/2ML INJ IV PRN (05:45)
[2024-07-13 11:15] LABS: CREATINE KINASE 44 IU/L (34-145)
[2024-07-13 11:18] LABS: TROPONIN I HIGH SENSITIVITY 53 ng/L (3.0-34)
[2024-07-13] MEDS: FUROSEMIDE 20MG/2ML VIAL IVP NR ×2 (12:13→12:15)
[2024-07-13] MEDS: SODIUM CHLORIDE 0.9% 1,000 ML IV SCH (12:13)
[2024-07-13] MEDS: ENOXAPARIN 30MG/0.3ML SYR SUBCUT SCH (12:14)
[2024-07-13] MEDS: SILDENAFIL CITRATE 20MG TABLET PO SCH (15:34)
[2024-07-13 16:25] LABS: PROTHROMBIN TIME 11.4 sec (9.6-11.0)
[2024-07-13 16:44] LABS: CREATINE KINASE 41 IU/L (34-145)
[2024-07-13] MEDS: MONTELUKAST SODIUM 10MG TABLET PO SCH (17:15)
[2024-07-13 17:24] LABS: TROPONIN I HIGH SENSITIVITY 61 ng/L (3.0-34)
[2024-07-13] MEDS: ALLOPURINOL 100 MG TABLET PO SCH (21:46)
[2024-07-13] MEDS: ENOXAPARIN 80MG/0.8ML SYR SUBCUT SCH (21:48)
[2024-07-14] VITALS (7 sets, daily range): BP systolic 137–173; BP diastolic 84–109; PULSE 74–89; RESP 18–19; TEMP 36.28068–36.89184; O2SAT 98–100
[2024-07-14 07:29] LABS: CHLORIDE 99 mEq/L (98-107); POTASSIUM 3.6 mEq/L (3.5-5.1); SODIUM 140 mEq/L (136-145)
[2024-07-14 07:30] LABS: CALCIUM 10.1 mg/dL (8.7-10.4); CARBON DIOXIDE 35 mEq/L (21-32)
[2024-07-14 07:35] LABS: CREATININE 0.7 mg/dL (0.6-1.0); GLUCOSE 99 mg/dL (70-105); UREA NITROGEN BLOOD 10 mg/dL (9-23)
[2024-07-14 07:49] LABS: BASOPHILS % 0.8 % (0.0-2.0); EOSINOPHILS % 0.6 % (0.0-5.0); HEMATOCRIT. 35.4 % (36.0-48.0); HEMOGLOBIN. 11.2 g/dL (12.0-16.0); LYMPHOCYTES % 33.2 % (20.0-50.0); MEAN CORPUSCULAR HEMOGLOBIN 29.8 pg (28.0-32.0); MEAN CORPUSCULAR HGB CONC 31.8 g/dL (31.0-37.0); MEAN CORPUSCULAR VOLUME 93.8 fL (81.0-99.0); MEAN PLATELET VOLUME 8.2 fl (7.4-10.4); NEUTROPHILS % 59.4 % (40.0-76.0); PLATELET 161 x1000/uL (130-400); RED BLOOD CELL COUNT 3.77 mill/uL (4.2-5.4); RED CELL DISTRIBUTION WIDTH 15.4 % (11.6-14.6); WHITE BLOOD COUNT 5.6 x1000/uL (4.5-11.0)
[2024-07-14] MEDS ORDERED: ASPIRIN 81MG TABLET PO SCH (09:00)
[2024-07-14] MEDS: DOCUSATE SODIUM 100MG CAPSULE PO SCH (09:14)
[2024-07-14] MEDS: POLYETHYLENE GLYCOL 3350 (17GM) 1 DOSE PACK PO SCH (09:14)
[2024-07-14] MEDS ORDERED: QUET25TA PO (10:32)
[2024-07-14] MEDS: QUETIAPINE FUMARATE 25MG TABLET PO PRN (14:33)
[2024-07-14] MEDS: BUDESONIDE 0.5MG/2ML NEB HHN SCH (21:30)
[2024-07-14] MEDS: IPRATROPIUM/ALBUTEROL 0.5-3(2.5)MG/3ML NEB HHN SCH (21:31)
[2024-07-15] VITALS (9 sets, daily range): BP systolic 131–167; BP diastolic 71–94; PULSE 71–98; RESP 17–22; TEMP 36.114–36.61404; O2SAT 96–100
[2024-07-15] MEDS: CLONIDINE 0.1MG TABLET PO PRN (05:43)
[2024-07-16] VITALS (11 sets, daily range): BP systolic 114–165; BP diastolic 64–104; PULSE 75–118; RESP 17–21; TEMP 35.5584–36.83628; O2SAT 97–100
[2024-07-16] MEDS: ACETAMINOPHEN 325MG TABLET PO PRN (09:57)
== END 2024-07-16 23:05 | disposition home health service (06) | DRG 280 ==
LOC: ER 23:29 → 5WST 07-13 02:55 → 7EST 07-13 23:45
PROVIDERS: ADMIT Internal Medicine; ATTEND Internal Medicine
DX: I21.4 Non-ST elevation (NSTEMI) myocardial infarction (principal); G82.50 Quadriplegia, unspecified; J96.21 Acute and chronic respiratory failure with hypoxia; G93.41 Metabolic encephalopathy; L89.323 Pressure ulcer of left buttock, stage 3; J98.11 Atelectasis; N13.39 Other hydronephrosis; K59.00 Constipation, unspecified; I11.0 Hypertensive heart disease with heart failure; I27.21 Secondary pulmonary arterial hypertension; I50.9 Heart failure, unspecified; Z99.81 Dependence on supplemental oxygen; J44.89 Other specified chronic obstructive pulmonary disease; D64.9 Anemia, unspecified; K80.20 Calculus of gallbladder without cholecystitis without obstruction; F03.90 Unspecified dementia, unspecified severity, without behavioral disturbance, psychotic disturbance, mood disturbance, and anxiety; M10.9 Gout, unspecified; E78.00 Pure hypercholesterolemia, unspecified; M24.59 Contracture, other specified joint; I48.0 Paroxysmal atrial fibrillation; Z99.3 Dependence on wheelchair; Z74.01 Bed confinement status; Z88.0 Allergy status to penicillin; Z91.018 Allergy to other foods
CPT/HCPCS: 36415; 71045; 73562; 74176; 80048; 80061; 82550; 83036; 83605; 83880; 84484; 85025; 92610; 93005; 93306; 93970; 94640; 97162; 97165; 97535; 99285; J1650; J1940; J7030; J7626